=== PATIENT | female | born 1930 | race Caucasian/White ===

== ENCOUNTER 2016-11-20 10:36 | Emergency (ER) | payer MEDICARE, BC ==
--- NOTE | 2016-11-20 11:09 | EDM.PDOC ---
ED HPI GENERAL MEDICAL PROBLEM - General Chief Complaint: Bite:Animal, Insect Stated Complaint: WASP STING Time Seen by Provider: 11/20/16 10:45 Source of Information: Reports: Patient, Family, RN, RN Notes Reviewed History Limitations: Reports: No Limitations - History of Present Illness INITIAL COMMENTS - FREE TEXT/NARRATIVE: Patient presents to the emergency room at [facility] after she was stung by a wasp. The patient states while she was out burning and watering rosebushes she was stung by a wasp. The patient is concerned because she does have a history of reactions to bee stings. The patient currently denies any respiratory problems. The patient's only complaint is very mild swelling in the palm of the left hand where she was stung. No focal neurological deficit. Patient denies any chest pain. Onset: Today Onset Date: 11/20/16 Onset Time: 10:00 - Related Data Allergies Allergy/AdvReac Type Severity Reaction Status Date / Time bee venom protein (honey bee) Allergy Airway Verified 11/20/16 10:55 Tightness Home Meds: Home Meds Levothyroxine 75 mcg PO ASDIRECTED 11/20/16 [History] Simvastatin [Zocor] 5 mg PO DAILY 11/20/16 [History] methylPREDNISolone [Medrol] 4 mg PO ASDIRECTED #1 dosepk 11/20/16 [Rx] ED ROS GENERAL - Review of Systems Review Of Systems: See Below Constitutional: Denies: Fever, Chills, Weakness Respiratory: Denies: Shortness of Breath, Wheezing, Cough Cardiovascular: Denies: Chest Pain, Dyspnea on Exertion, Palpitations Skin: Reports: Wound (swelling around the PIP joint 5th digit left hand) Neurological: Reports: No Symptoms. Denies: Dizziness, Headache, Numbness, Paresthesia, Tingling ED EXAM, ANIMAL BITE - Physical Exam Exam: See Below Exam Limited By: No Limitations General Appearance: Alert, No Apparent Distress Throat/Mouth: Normal Inspection, Normal Oropharynx, No Airway Compromise Neck: Supple Respiratory/Chest: No Respiratory Distress, Lungs Clear, Normal Breath Sounds Cardiovascular: Normal Peripheral Pulses, Regular Rate, Rhythm Peripheral Pulses: 2+: Radial (L), Radial (R) Neurological: Alert, Oriented Skin Exam: Normal Color, Warm/Dry, Other (Mild erythema and swelling around the PIP joint of the fifth digit left hand; no stinger located; area is slightly tender to palpation; no evidence of ensuing infection) Course - Vital Signs Last Recorded V/S: Last Vital Signs Temp 36.3 C 11/20/16 10:45 Pulse 76 11/20/16 10:45 Resp 20 11/20/16 10:45 BP 138/72 11/20/16 10:45 Pulse Ox 96 11/20/16 10:45 Departure - Departure Time of Disposition: 11:08 Disposition: Home, Self-Care 01 Condition: Good Clinical Impression: Wasp sting Qualifiers: Encounter type: initial encounter Injury intent: accidental or unintentional Qualified Code(s): T63.461A - Toxic effect of venom of wasps, accidental ( unintentional), initial encounter - Discharge Information Prescriptions: methylPREDNISolone [Medrol] 4 mg PO ASDIRECTED #1 dosepk Instructions: Bee, Wasp, or Hornet Sting Additional Instructions: 1. Stay well hydrated and rest 2. Take steroid medication for the full coarse, even if symptoms are better 3. Call with any questions or concerns - Problem List Review Problem List Initiated/Reviewed/Updated: Yes - Assessment/Plan Plan: Given the patient's history of bee sting reactions in the past, I will prophylactically start patient on a Medrol dose pack. Discussed the patient to watch the area and if it progressively gets worse she is to return or see her primary care provider. Discussed the patient and she feels that she's having any breathing difficulty or chest pain she is also to return. Patient verbalized understanding.
== END 2016-11-20 11:21 | disposition home or self-care (01) ==
LOC: VM.ED 10:36
DX: T63.461A Toxic effect of venom of wasps, accidental (unintentional), initial encounter (principal); M79.89 Other specified soft tissue disorders; Z91.030 Bee allergy status
CPT/HCPCS: 99281; 99282-GF

== ENCOUNTER 2018-09-07 10:03 | Observation (INO) | payer MEDICARE, BC ==
[2018-09-07] MEDS ORDERED: Sodium Chloride 0.9% 10 ML Syringe FLUSH PRN (10:19)
[2018-09-07] MEDS: Sodium Chloride 0.9% 1,000 ML IV ONE ×2 (10:34→13:43)
[2018-09-07] MEDS ORDERED: cefTRIAXone 2 GM Vial IVPUSH ONE (10:48)
--- NOTE | 2018-09-07 11:14 | EDM.PDOC ---
ED HPI GENERAL MEDICAL PROBLEM - General Chief Complaint: General Stated Complaint: DIZZY AND NOT FEELING WELL Time Seen by Provider: 09/07/18 10:05 Source of Information: Reports: Patient, Family History Limitations: Reports: No Limitations - History of Present Illness INITIAL COMMENTS - FREE TEXT/NARRATIVE: Pt. presents to ER with complaints feeling lightheaded. Pt. was diagnosed with CAP yesterday at [facility]. She was started on Azithromycin. Pt. states that she has been experiencing a cough and chest congestion for over a week before she went to the clinic. Denies any fever or chills. She compaints of feeling more lighteded this AM and presents to ER. Denies any palpitations. No chest pain, but complains of chest pressure. No jaw, arm, neck or back pain. No nausea, vomiting, or diarrhea. No melena or hematochezia. No hematemesis. She states that her appetite is normal. She has not been around any sick contacts. family states that the patient is not confused. Onset: Today Onset Date: 09/07/18 Location: Reports: Generalized - Related Data Allergies Allergy/AdvReac Type Severity Reaction Status Date / Time bee venom protein (honey bee) Allergy Airway Verified 09/07/18 10:13 Tightness Home Meds: Home Meds Levothyroxine 75 mcg PO ASDIRECTED 11/20/16 [History] Simvastatin [Zocor] 5 mg PO DAILY 11/20/16 [History] methylPREDNISolone [Medrol] 4 mg PO ASDIRECTED #1 dosepk 11/20/16 [Rx] Past Medical History Cardiovascular History: Reports: High Cholesterol Endocrine/Metabolic History: Reports: Hypothyroidism Social & Family History - Tobacco Use Smoking Status *Q: Unknown Ever Smoked ED ROS GENERAL - Review of Systems Review Of Systems: See Below Constitutional: Reports: Malaise, Weakness, Fatigue. Denies: Fever, Chills HEENT: Reports: No Symptoms Respiratory: Reports: No Symptoms Cardiovascular: Reports: No Symptoms, Lightheadedness, Other (chest pressure) Endocrine: Reports: No Symptoms GI/Abdominal: Reports: No Symptoms : Reports: No Symptoms Musculoskeletal: Reports: No Symptoms Skin: Reports: No Symptoms Neurological: Reports: No Symptoms Psychiatric: Reports: No Symptoms Hematologic/Lymphatic: Reports: No Symptoms Immunologic: Reports: No Symptoms ED EXAM, GENERAL - Physical Exam Exam: See Below Exam Limited By: No Limitations General Appearance: Alert, WD/WN, No Apparent Distress Nose: Normal Inspection, Normal Mucosa, No Blood Throat/Mouth: Normal Inspection, Normal Lips, Normal Teeth, Normal Gums, Normal Oropharynx, Normal Voice, No Airway Compromise Head: Atraumatic, Normocephalic Neck: Normal Inspection, Supple, Non-Tender, Full Range of Motion Respiratory/Chest: Decreased Breath Sounds, Crackles Cardiovascular: Normal Peripheral Pulses, Regular Rate, Rhythm, No Edema, No Gallop, No JVD, No Murmur, No Rub Peripheral Pulses: 3+: Brachial (R) GI/Abdominal: Normal Bowel Sounds, Soft, Non-Tender, No Organomegaly, No Distention, No Mass (Female) Exam: Deferred Rectal (Female) Exam: Deferred Back Exam: Normal Inspection, Full Range of Motion Extremities: Normal Inspection, Normal Range of Motion Neurological: Alert, Oriented, CN II-XII Intact, Normal Cognition, Normal Gait, Normal Reflexes, No Motor/Sensory Deficits Psychiatric: Normal Affect, Normal Mood Skin Exam: Warm, Dry, Intact, Normal Color, No Rash Lymphatic: No Adenopathy Course - Vital Signs Last Recorded V/S: Last Vital Signs Temp 36.5 C 09/07/18 10:03 Pulse 76 09/07/18 10:39 Resp 18 09/07/18 10:39 BP 138/71 09/07/18 10:39 Pulse Ox 98 09/07/18 10:39 - Orders/Labs/Meds Orders: Active Orders 24 hr Category Date Time Status EKG Documentation Completion [RC] STAT Care 09/07/18 10:19 Active CBC WITH AUTO DIFF [HEME] Stat Lab 09/07/18 10:40 Results COMPREHENSIVE METABOLIC PN,CMP [CHEM] Stat Lab 09/07/18 10:40 Received CRP [C-REACTIVE PROTEIN] [CHEM] Stat Lab 09/07/18 10:40 Received CULTURE BLOOD [BC] Stat Lab 09/07/18 10:40 Received CULTURE BLOOD [BC] Stat Lab 09/07/18 10:43 Received LACTIC ACID [CHEM] Stat Lab 09/07/18 10:40 Received MAGNESIUM [CHEM] Stat Lab 09/07/18 10:40 Received MANUAL DIFFERENTIAL QA/NC [HEME] Stat Lab 09/07/18 10:40 Results PHOSPHORUS [CHEM] Stat Lab 09/07/18 10:40 Received PRO B-TYPE NATRIUR PEPT,BNPPRO [CHEM] Stat Lab 09/07/18 10:40 Received TROPONIN I [CHEM] Stat Lab 09/07/18 10:40 Received Sodium Chloride 0.9% [Normal Saline] 1,000 ml Med 09/07/18 10:24 Active IV ASDIRECTED Sodium Chloride 0.9% [Saline Flush] Med 09/07/18 10:19 Active 10 ml FLUSH ASDIRECTED PRN Blood Culture x2 Reflex Set [OM.PC] Stat Oth 09/07/18 10:20 Ordered Peripheral IV Insertion Adult [OM.PC] Routine Oth 09/07/18 10:20 Ordered Medication Orders Sodium Chloride (Normal Saline) 1,000 mls @ 250 mls/hr IV ASDIRECTED ONE Stop: 09/07/18 14:23 Last Admin: 09/07/18 10:34 Dose: 250 mls/hr Sodium Chloride (Saline Flush) 10 ml FLUSH ASDIRECTED PRN PRN Reason: Keep Vein Open Labs: Laboratory Tests 09/07/18 09/07/18 Range/Units 10:40 10:40 WBC 7.0 (4.0-10.0) x10^3/uL RBC 3.74 L (4.00-5.50) x10^6/uL Hgb 11.0 L (12.0-16.0) g/dL Hct 34.3 (33.0-47.0) % MCV 91.7 (78.0-93.0) fL MCH 29.4 (26.0-32.0) pg MCHC 32.1 (32.0-36.0) g/dL RDW Coeff of Manny 13.7 (10.0-15.0) % Plt Count 495 H (130-400) x10^3/uL Add Manual Diff Yes PT 10.8 (10.0-12.8) SEC INR 1.0 L (2.0-3.5) Meds: Medications Generic Name Dose Route Start Last Admin Trade Name Freq PRN Reason Stop Dose Admin Sodium Chloride 1,000 mls @ 250 mls/hr 09/07/18 10:24 09/07/18 10:34 Normal Saline IV 09/07/18 14:23 250 mls/hr ASDIRECTED ONE Administration Sodium Chloride 10 ml 09/07/18 10:19 Saline Flush FLUSH ASDIRECTED PRN Keep Vein Open Discontinued Medications Generic Name Dose Route Start Last Admin Trade Name Rick PRN Reason Stop Dose Admin Ceftriaxone Sodium 2 gm 09/07/18 10:48 09/07/18 10:56 Rocephin IVPUSH 09/07/18 10:49 2 gm STAT ONE Administration Departure - Departure Time of Disposition: 11:54 Disposition: DC/Tfer to [facility] 02 Clinical Impression: Community acquired pneumonia - Discharge Information - Problem List Review Problem List Initiated/Reviewed/Updated: Yes - My Orders Last 24 Hours: My Active Orders 09/07/18 10:19 EKG Documentation Completion [RC] STAT Sodium Chloride 0.9% [Saline Flush] 10 ml FLUSH ASDIRECTED PRN 09/07/18 10:20 Blood Culture x2 Reflex Set [OM.PC] Stat Peripheral IV Insertion Adult [OM.PC] Routine 09/07/18 10:24 Sodium Chloride 0.9% [Normal Saline] 1,000 ml IV ASDIRECTED 09/07/18 10:40 CBC WITH AUTO DIFF [HEME] Stat COMPREHENSIVE METABOLIC PN,CMP [CHEM] Stat CRP [C-REACTIVE PROTEIN] [CHEM] Stat CULTURE BLOOD [BC] Stat LACTIC ACID [CHEM] Stat MAGNESIUM [CHEM] Stat MANUAL DIFFERENTIAL QA/NC [HEME] Stat PHOSPHORUS [CHEM] Stat PRO B-TYPE NATRIUR PEPT,BNPPRO [CHEM] Stat TROPONIN I [CHEM] Stat 09/07/18 10:43 CULTURE BLOOD [BC] Stat - Assessment/Plan Last 24 Hours: My Active Orders 09/07/18 10:19 EKG Documentation Completion [RC] STAT Sodium Chloride 0.9% [Saline Flush] 10 ml FLUSH ASDIRECTED PRN 09/07/18 10:20 Blood Culture x2 Reflex Set [OM.PC] Stat Peripheral IV Insertion Adult [OM.PC] Routine 09/07/18 10:24 Sodium Chloride 0.9% [Normal Saline] 1,000 ml IV ASDIRECTED 09/07/18 10:40 CBC WITH AUTO DIFF [HEME] Stat COMPREHENSIVE METABOLIC PN,CMP [CHEM] Stat CRP [C-REACTIVE PROTEIN] [CHEM] Stat CULTURE BLOOD [BC] Stat LACTIC ACID [CHEM] Stat MAGNESIUM [CHEM] Stat MANUAL DIFFERENTIAL QA/NC [HEME] Stat PHOSPHORUS [CHEM] Stat PRO B-TYPE NATRIUR PEPT,BNPPRO [CHEM] Stat TROPONIN I [CHEM] Stat 09/07/18 10:43 CULTURE BLOOD [BC] Stat Plan: Pt. was given a 500ml bolus of normal saline. She was given 2 gm of rocephin IV in ER. Pt. did have an elevated lactic acid of 2.3. Pt. will be admitted acutely to med surg. I spoke with Dr. Cornelia Gomez who will admit the patient acutely. She is a code 2, no CPR, but would consent to intubation and ventilation if it was for a short period of time.
[2018-09-07 11:31] LABS: CHLORIDE,CL 98 mmol/L (98-107); SODIUM,NA 136 mmol/L (136-145)
[2018-09-07 11:32] LABS: ANION GAP 15.9 mmol/L (10-20)
--- NOTE | 2018-09-07 12:39 | CR ---
[id number] RAD/RAD Chest PA And Lateral EXAM: FRONTAL AND LATERAL CHEST INDICATION: Cough, lightheadedness and pinned acquired pneumonia. COMPARISON: None. DISCUSSION: Small bilateral pleural effusions with associated basilar atelectasis and mild infiltrates. Small to moderate hiatus hernia. Hyperaeration compatible with chronic obstructive pulmonary disease. Normal heart size. IMPRESSION: 1. Small bilateral pleural effusions with mild associated basilar atelectasis and possible early infiltrates. Jorge Sanchez MD 09/07/18 [id number] Thank you for allowing us to participate in the care of your patient.
[2018-09-07] MEDS ORDERED: ALPRAZolam 0.25 MG Tab PO PRN (13:00)
[2018-09-07] MEDS: AZITHROMYCIN 250 MG PO SCH (13:40)
--- NOTE | 2018-09-07 15:17 | HP ---
CHIEF COMPLAINT: Cough, also dizzy and not feeling well. HISTORY OF PRESENT ILLNESS: This is an 87-year-old female who came into the clinic yesterday with a cough for over 1 month and was diagnosed with pneumonia. She was started on Zithromax; however, today she continued to have the cough and just felt unwell, maybe a little bit lightheaded, came into the ER, did get some fluid and felt better, but her lactic acid was up to 2.3, so decision was made to admit her. She states her cough was productive of yellow sputum. She thought it was maybe allergies, but then yesterday she had more of a sore throat, so came in. She has not had any fever or chills. No history of pneumonia or lung disease. She is a nonsmoker. She is not short of breath. She has been eating okay. No stomach problems. No diarrhea. The patient states she has lost weight over the last few weeks. Her clinic chart actually does show a 7-pound weight loss in 3 weeks time. X-ray in the clinic yesterday did show bilateral infiltrates. No lab work was done. She has no history of heart failure and has been quite healthy. She reports that sometimes she does have some memory difficulty. Her daughter is in the room and they feel things are going okay. She does not appear to be confused on exam. ALLERGIES: Include bees and statin medications. MEDICATIONS: List is reviewed. She tells me she takes Zocor maybe 1 time a week, 5 mg; Zithromax, got 500 mg yesterday, then 250 daily, has not taken yet today; Xanax 0.25 one-half to 1 tablet twice daily as needed for anxiety; multivitamin; levothyroxine 50 mcg daily; aspirin 81 mg daily; Zantac 150 twice daily; Mylanta, calcium, and vitamin D with breakfast. PAST MEDICAL HISTORY: Includes anxiety; essential hypertension; previous colon polyps; chronic diastolic heart failure, EF 60% in 2018; osteopenia; fibromyalgia; GERD; history of H. pylori gastritis; hypothyroidism; memory difficulties, but mini-mental 29/30 in 2018; mild depression; hyperlipidemia; varicose veins; history of polio in childhood. PAST SURGICAL HISTORY: Includes total abdominal hysterectomy, heel cord lengthening, venous surgery with ELVeS, colonoscopy, cholecystectomy, cataracts, and appendectomy. FAMILY HISTORY: Both parents are . Mother had colon cancer. Father had heart disease. SOCIAL HISTORY: The patient is a never smoker. She has 3 daughters. She is tired from farming. She is . REVIEW OF SYSTEMS: General: She is losing weight, but no fever, no chills, little bit fatigued. HEENT: Some sore throat, but no trouble swallowing. She does not cough or choke on food. Cardiac: No chest pain. No palpitations. Respiratory: As stated in the HPI. Abdomen: No nausea, vomiting, diarrhea, or constipation. Musculoskeletal: She has no new joint aches or pains. Otherwise, all systems reviewed and found to be negative unless otherwise stated. PHYSICAL EXAMINATION: Vital Signs: I saw the patient, her weight was 70.3 kg, temperature 97.6, pulse 77, blood pressure 127/70, respiratory rate 16, O2 of 99% on room air. General: She is in no acute distress. Heart: Regular rate and rhythm. S1, S2 without murmur. Lungs: Lung sounds are clear to auscultation bilaterally in the upper bases, but decreased in both lower bases, and she does have crackles noted in both bases, more so on the left lower lobe. Abdomen: Positive bowel sounds. Soft, nontender. Extremities: Warm and dry. No edema. Mental Status: She is alert. She is orientated x3. LABORATORY DATA: Her chest x-ray done in ER does continue to show her to have bilateral infiltrates with small pleural effusion. Lab work does show normal white count 7, hemoglobin 11, platelets 495. INR 1. TSH recently normal through the clinic. Sodium 136, potassium 3.9, chloride 98, bicarb 26, BUN 11, creatinine 1.1, glucose 179, lactic 2.3, calcium 9, magnesium 2.2, bilirubin 0.4, AST 58, ALT 93, alkaline phosphatase 109. Troponin negative. CRP 4.1. ProBNP 381. Albumin 2.7. UA ordered and pending. ASSESSMENT AND PLAN: 1. Community-acquired bilateral pneumonia. The patient does not appear to be overly sick, however, feels poorly and failed antibiotics at home. We will admit her observation. She has already received 2 g of IV Rocephin. I will continue the oral Zithromax to complete the course 250 daily. We will repeat all lab work in the morning. We will send sputum for culture. Blood cultures have already been sent. We will decide on further antibiotic dosing prior to discharge, which I anticipate will be tomorrow. She is not requiring any oxygen. 2. Mild renal insufficiency. Creatinine up to 1.1. This is near her recent baseline in the clinic. We will make sure she gets the full liter of fluids and repeat tomorrow. I will also send a UA. 3. Essential hypertension. Blood pressure now under excellent control. We will continue her on no medications for blood pressure, which she is not on any currently. 4. Anxiety. We will continue her p.r.n. Xanax. 5. Cough, could be due to pneumonia. Anticipate that if symptoms do not resolve after treatment in a couple of weeks, she may need further testing for asthma. 6. Hypothyroidism. We will continue her home levothyroxine. 7. Questionable mild memory difficulty. She seems to be at baseline. I do not even feel any therapies are indicated for her. PLAN: The patient is admitted for observation. We will repeat the lactic acid. We will repeat lab work in the morning due to some mild anemia. We will put her on incentive spirometry. We will continue oral Zithromax and consider another dose of IV Rocephin if needed. For DVT prophylaxis, I will place her on Lovenox. She elects to be no CPR, but would want intubation. Dr. Patino to assume care tomorrow. MKA: 09/07/2018 14:19:50 MODL: 09/07/2018 15:06:49 /[id number]
[2018-09-07] MEDS: Famotidine 20 MG Tab PO SCH (19:31)
[2018-09-07] MEDS: Aluminum Hydroxide/Magnesium Hydroxide/Simethicone Susp 30 ML Cup PO SCH (20:06)
[2018-09-07] MEDS: Enoxaparin 30 MG/0.3 ML Syringe SUBCUT SCH (20:06)
[2018-09-08] MEDS: Levothyroxine 50 MCG Tab PO SCH (06:26)
[2018-09-08 07:40] LABS: ANION GAP 13.5 mmol/L (10-20)
[2018-09-08] MEDS: Famotidine 20 MG Tab PO SCH ×2 (07:41→19:43)
[2018-09-08] MEDS: AZITHROMYCIN 250 MG PO SCH (07:41)
[2018-09-08] MEDS: Aluminum Hydroxide/Magnesium Hydroxide/Simethicone Susp 30 ML Cup PO SCH ×2 (07:42→19:36)
[2018-09-08] MEDS: Aspirin 81 MG Tab.Chew PO SCH ×2 (07:42→08:55)
[2018-09-08] MEDS ORDERED: Aluminum Hydroxide/Magnesium Hydroxide/Simethicone Susp 30 ML Cup PO SCH (08:00)
[2018-09-08] MEDS ORDERED: Furosemide 20 MG Tab PO ONE (08:38)
[2018-09-08] MEDS: cefTRIAXone 1 GM Vial IVPUSH SCH (08:55)
--- NOTE | 2018-09-08 10:33 | PN ---
Progress Note for ROBERT SIFUENTES Date: 09/08/2018 Room #: VM.211 SUBJECTIVE: The patient is still coughing some. She is still feeling weak. She can walk around her room, but otherwise beyond that. Yesterday, when she was admitted, she commented that she was having quite a bit of weakness, panicky, shortness of breath type feeling. She presented to the emergency room. She had been seen in the clinic last week and noted to have a bilateral pneumonia and was placed on Zithromax. No lab work was done. When she was seen in the emergency room yesterday, her lactic acid was elevated. OBJECTIVE: VITAL SIGNS: Her temperature is 36.7, pulse 68, blood pressure is 114/53, respiratory rate is 18, saturation 95%. LUNGS: Reveals bilateral inspiratory crackles. HEART: Regular rate and rhythm. ABDOMEN: Soft. NEUROLOGIC: She is somewhat weak with changing positions. LABORATORY DATA: Her lab work today is showing her white blood cell count is normal at 6.4, hemoglobin is 10.7, platelets are 459. Sodium is 142, potassium 4.5, creatinine has improved to 0.9. GFR is 59, which has improved. Glucose is 89. Lactic acid on admission was 2.3, had been checked a few hours later was down to 0.7. Her LFTs have improved with AST 43, ALT 68. Urinalysis was normal. Sputum culture was obtained, which was rejected initially, so still waiting for further one. IMPRESSION: 1. Bilateral pneumonia. 2. Bilateral pleural effusions. 3. Elevated LFTs. 4. Weakness. 5. Hypertension. PLAN: We will continue to keep the patient hospitalized. We will continue IV Rocephin. We will give her some physical therapy for strengthening. We will give her a one time dose of Lasix to help with pleural effusion. We will repeat chest x-ray tomorrow. We do anticipate the patient should hopefully be able to go home tomorrow. Sputum sample will be resubmitted as well. GM09/08/2018 08:43:58 MODL: 09/08/2018 09:58:50 /[id number]
[2018-09-08] MEDS: Enoxaparin 30 MG/0.3 ML Syringe SUBCUT SCH (19:43)
[2018-09-09] MEDS: Levothyroxine 50 MCG Tab PO SCH (06:13)
[2018-09-09 07:00] LABS: ANION GAP 14.3 mmol/L (10-20)
[2018-09-09] MEDS: AZITHROMYCIN 250 MG PO SCH (07:58)
[2018-09-09] MEDS: cefTRIAXone 1 GM Vial IVPUSH SCH (07:58)
[2018-09-09] MEDS: Famotidine 20 MG Tab PO SCH (07:58)
[2018-09-09] MEDS: Aspirin 81 MG Tab.Chew PO SCH (07:59)
[2018-09-09] MEDS: Aluminum Hydroxide/Magnesium Hydroxide/Simethicone Susp 30 ML Cup PO SCH (08:01)
--- NOTE | 2018-09-09 08:33 | CR ---
[id number] RAD/RAD Chest PA And Lateral EXAM: FRONTAL AND LATERAL CHEST INDICATION: Pneumonia follow-up. COMPARISON: September 07, 2018. DISCUSSION: Small bilateral pleural effusions and basilar atelectasis and infiltrates have not appreciably changed. Underlying hyperinflation is compatible chronic obstructive pulmonary disease. Small to moderate hiatus hernia. Normal heart size. IMPRESSION: 1. Stable small bilateral pleural effusions with associated basilar atelectasis and possible mild infiltrates. Jorge Sanchez MD 09/09/18 0830 Thank you for allowing us to participate in the care of your patient.
--- NOTE | 2018-09-09 09:15 | PN ---
Progress Note for ROBERT SIFUENTES Date: 09/09/2018 Room #: VM.211 SUBJECTIVE: The patient is feeling better. She is not coughing as much. She did have some voiding after being given her diuretic pill. Her strength is returning. OBJECTIVE: Vital Signs: Objectively, her output yesterday was greater than intake due to the diuretic pill. Her weight is 70.6 kg, which is essentially the same as the day prior. Her temperature is 36.6, pulse of 67, blood pressure is 141/65, respiratory rate 16, saturations are 96. General: She is alert. Heart: Regular rate and rhythm. Lungs: Have rare crackles on left base. Abdomen: Soft. Extremities: Lower extremities, no edema. LABORATORY DATA: Sputum culture was repeated. It is showing greater than 100 white blood cells with less than 25 epis. No organisms seen. Her white blood cell count is 6.6, hemoglobin is up to 11.5, platelets are 474 with 48 segs and 43 lymphocytes. Sodium is 142, potassium 4.3, creatinine 1.0, GFR 52. Her LFTs have stayed with AST 44 and ALT 70. CRP has improved to 2.4. Chest x-ray was obtained, which does show improvement of pneumonia bilaterally with less fluid. IMPRESSION: 1. Bilateral pneumonia. 2. Bilateral pleural effusions. 3. Elevated LFTs. 4. Hypertension. PLAN: The patient will be allowed to be discharged home today. She did receive her IV Rocephin dose today, so we will place her on Ceftin, which she will start tomorrow. I will also repeat a course of Zithromax for her as her pneumonia is still present. The patient does have an appointment to see me in about 8 days, which she will keep. GM09/09/2018 08:30:11 MODL: 09/09/2018 09:08:25 /[id number]
--- NOTE | 2018-09-10 04:13 | DISCH ---
PRIMARY DIAGNOSES: 1. Bilateral pneumonia. 2. Bilateral pleural effusions. 3. Weakness secondary to pneumonia. 4. Hypertension. 5. Hypothyroidism. 6. Hypercholesterolemia. SUMMARY OF ADMIT HISTORY AND PHYSICAL: The patient is an 87-year-old female who presented to the emergency room feeling lightheaded. She had been diagnosed with community-acquired pneumonia at a clinic a few days ago. She had been started on azithromycin, which she had been experiencing a cough and congestion over the week prior. No fever or chills. She was feeling more lightheaded. No chest pressure. No chest pain. The patient was not noted to be confused. PHYSICAL EXAMINATION: Her blood pressure is 138/71, respiratory rate is 18, pulse 76, temperature 36.5, and sats 98. DIAGNOSTIC DATA: Her EKG looked normal. Chest x-ray showed bilateral pleural effusions with pneumonia. White blood cell count 7.0, hemoglobin 11.0, and platelets 495. SUMMARY OF HOSPITAL COURSE: The patient was placed on observation. She was given Rocephin. She was given some IV hydration, which did help. She did have sputum cultures. It was noted that her lactic acid was elevated at 2.3 on admission, was checked a few hours later; it was down to 0.7. It is noted that her liver function enzymes were elevated with her AST 58, ALT 93. CRP was elevated at 4.1, albumin was 2.7. The patient received physical therapy. She received incentive spirometry. By next morning, on 09/08, she was noted to still feel a bit weak. White blood cell count had dropped down to 6.4 from 7.0 on admission. Hemoglobin was 10.7. It was felt that she would benefit by physical therapy. She was also given 1 pill of Lasix 20 mg to help with pleural effusions. Her LFTs had improved to 43 with her AST, ALT was 68. By 09/09/2018, she was feeling much better. Chest x- ray showed improvement of pneumonias with pleural effusions having resolved. Her labs showed a white blood cell count of 6.6, hemoglobin 11.5, platelets 474. Sodium is 142, potassium 4.3, creatinine 1.0. GFR 52. Her AST was 44, ALT 70, CRP had improved to 2.4, albumin was 2.6. She will be switched to oral Ceftin and continue with the Zithromax. She was felt safe to go home. The patient will follow up with me in a week's time. We will have her use incentive spirometry while she is awake. Discharge medications will be simvastatin 5 mg Thursday, Thursday, and Thursday; Zantac 150 mg 1 p.o. b.i.d.; aspirin 81 mg 1 pill daily; levothyroxine 50 mcg 1 pill daily; calcium with vitamin D 1 pill daily; alprazolam 0.25 mg, she takes half to 1 pill twice a day as needed; Zithromax 250 mg daily, will be continued for 7 more days; Ceftin 250 mg 1 p.o. b.i.d., which will start on 09/10/2018 for 7 days. Her Maalox as needed. Multivitamin PreserVision 1 capsule daily. The patient is to inquire with her eye doctor if she can receive her injection next week versus if it needs to be delayed because she is being treated for pneumonia. The patient will need to have repeat LFTs. If they still stay elevated, she might need further workup of this. She will need to have followup chest x-ray done as well as CBC and comprehensive metabolic profile. To note, a sputum culture was obtained and is not finalized yet. It was showing greater than 100 white blood cells per low-powered field with less than 25 epithelial cells, no organism was seen. At the time of discharge, the patient is [id number] status. 09/09/2018 08:43:29 MODL: 09/10/2018 04:05:27 /[id number]
[2018-09-10] MEDS ORDERED: Cefuroxime 250 MG Tab PO SCH (08:00)
== END 2018-09-09 10:40 | disposition home or self-care (01) ==
LOC: VM.ED 10:03 → INTOOBSV 11:52 → VM.MS 11:52
PROVIDERS: ADMIT Internal Medicine; ATTEND Family Medicine
DX: J18.9 Pneumonia, unspecified organism (principal); I11.0 Hypertensive heart disease with heart failure; I50.32 Chronic diastolic (congestive) heart failure; E03.9 Hypothyroidism, unspecified; E78.00 Pure hypercholesterolemia, unspecified; F41.9 Anxiety disorder, unspecified; M79.7 Fibromyalgia; K21.9 Gastro-esophageal reflux disease without esophagitis; F32.9 Major depressive disorder, single episode, unspecified; N28.9 Disorder of kidney and ureter, unspecified; R05 Cough; R79.89 Other specified abnormal findings of blood chemistry; Z88.8 Allergy status to other drugs, medicaments and biological substances; Z91.030 Bee allergy status; Z79.82 Long term (current) use of aspirin; Z79.890 Hormone replacement therapy; Z79.899 Other long term (current) drug therapy
CPT/HCPCS: 36415; 71046; 80053; 81003; 83605; 83735; 83880; 84100; 84484; 85007; 85025; 85027; 85610; 86140; 87040; 87070; 87077; 87205; 93005; 96361; 96374; 96376; 97161; 97530; 99285; A9270; G0378; J0696; J7030; 87147; 87186; 99284-GF

== ENCOUNTER 2018-09-14 17:12 | Emergency (ER) | payer MEDICARE, BC ==
[2018-09-14] MEDS ORDERED: Sodium Chloride 0.9% 10 ML Syringe FLUSH PRN (17:30)
[2018-09-14] MEDS ORDERED: Albuterol/Ipratropium 3.0-0.5 MG/3 ML Neb Soln NEB ONE (17:34)
--- NOTE | 2018-09-14 18:01 | CR ---
[id number] RAD/RAD Chest PA or AP 1V EXAM: FRONTAL AND LATERAL CHEST INDICATION: SHORT OF BREATH. COMPARISON: September 07, 2018. DISCUSSION: Small bilateral pleural effusions and basilar atelectasis and infiltrates are not significantly changed. Underlying hyperinflation is compatible chronic obstructive pulmonary disease. Small to moderate hiatal hernia. The cardiomediastinal silhouette is stable in size. IMPRESSION: 1. Stable small bilateral pleural effusions with associated basilar atelectasis and likely small infiltrates. Keon Hernandez DO 09/14/18 1800 Thank you for allowing us to participate in the care of your patient.
[2018-09-14 18:24] LABS: CHLORIDE,CL 98 mmol/L (98-107); SODIUM,NA 135 mmol/L (136-145)
--- NOTE | 2018-09-14 18:27 | EDM.PDOC ---
ED HPI GENERAL MEDICAL PROBLEM - General Chief Complaint: Respiratory Problem Stated Complaint: DIFFICULTY BREATHING Time Seen by Provider: 09/14/18 17:30 Source of Information: Reports: Patient, Family, Provider History Limitations: Reports: No Limitations - History of Present Illness INITIAL COMMENTS - FREE TEXT/NARRATIVE: Patient presents with complaints of shortness of breath that started after her nap this afternoon. She was recently discharged from [facility] after acquiring community acquired pneumonia. Continues to take Ceftin for antibiotic. She did think this was making her dizzy. No complaints of any falls, headache, neck ache, abdominal pain. Is urinating normally, no bowel problems. No urinary symptoms. No blood in urine or stools. Onset: Today, Sudden Duration: Getting Worse Location: Reports: Chest Severity: Moderate Associated Symptoms: Reports: cough w sputum, Shortness of Breath - Related Data Allergies Allergy/AdvReac Type Severity Reaction Status Date / Time bee venom protein (honey bee) Allergy Airway Verified 09/14/18 18:39 Tightness Bpkdhld-Vde-Rbj Reductase AdvReac Muscle Verified 09/14/18 18:39 Inhibitor Aches Home Meds: Home Meds Simvastatin [Zocor] 5 mg PO MOWEFR 11/20/16 [History] ALPRAZolam [Xanax] 0.5 - 1 tab PO BID PRN 09/07/18 [History] Alum Hydrox/Mag Hydrox/Simeth [Maalox Advanced] 5 ml PO DAILY 09/07/18 [History] Aspirin 81 mg PO DAILY 09/07/18 [History] Calcium Carbonate/Vitamin D3 [Calcium Carbonate/Vitamin D 600 MG-200 Unit] 1 tab PO ACBREAKFAST 09/07/18 [History] Levothyroxine [Synthroid] 50 mcg PO DAILY 09/07/18 [History] Ranitidine [Zantac] 150 mg PO BID 09/07/18 [History] Vit C/E/Zn/Coppr/Lutein/Zeaxan [Preservision Areds 2 Softgel] 2 cap PO DAILY [History] Azithromycin [Zithromax] 250 mg PO DAILY #6 tablet 09/09/18 [Rx] Cefuroxime [Ceftin] 250 mg PO BID 7 Days #14 tablet 09/09/18 [Rx] Past Medical History HEENT History: Reports: Cataract Cardiovascular History: Reports: High Cholesterol, Hypertension, Other (See Below) Other Cardiovascular History: varicose veins, diastolic dysfunction Respiratory History: Reports: Other (See Below) Other Respiratory History: dyspnea on exertion Gastrointestinal History: Reports: Colon Polyp, Gastritis, GERD, Hemorrhoids Musculoskeletal History: Reports: Other (See Below) Other Musculoskeletal History: disorder of bone Other Neuro History: fibromylagia, memory difficulties, hx of polio Psychiatric History: Reports: Anxiety, Depression Endocrine/Metabolic History: Reports: Hypothyroidism - Past Surgical History HEENT Surgical History: Reports: Cataract Surgery GI Surgical History: Reports: Appendectomy, Cholecystectomy, Colonoscopy Female Surgical History: Reports: Hysterectomy Social & Family History - Family History Family Medical History: Noncontributory - Caffeine Use Caffeine Use: Reports: Coffee ED ROS GENERAL - Review of Systems Review Of Systems: See Below Constitutional: Reports: No Symptoms HEENT: Reports: No Symptoms Respiratory: Reports: Shortness of Breath, Cough Cardiovascular: Reports: No Symptoms Endocrine: Reports: No Symptoms GI/Abdominal: Reports: No Symptoms : Reports: No Symptoms Musculoskeletal: Reports: No Symptoms Skin: Reports: No Symptoms Neurological: Reports: Dizziness Psychiatric: Reports: No Symptoms Hematologic/Lymphatic: Reports: No Symptoms Immunologic: Reports: No Symptoms ED EXAM, GENERAL - Physical Exam Exam: See Below Exam Limited By: No Limitations General Appearance: Alert, WD/WN, No Apparent Distress Eye Exam: Bilateral Eye: EOMI, Normal Inspection, PERRL Ears: Normal TMs Nose: Normal Inspection, Normal Mucosa, No Blood Throat/Mouth: Normal Inspection, Normal Lips, Normal Teeth, Normal Gums, Normal Oropharynx, Normal Voice, No Airway Compromise Head: Atraumatic, Normocephalic Neck: Normal Inspection, Supple, Non-Tender, Full Range of Motion Respiratory/Chest: No Respiratory Distress, Lungs Clear, Normal Breath Sounds, No Accessory Muscle Use, Chest Non-Tender Cardiovascular: Normal Peripheral Pulses, Regular Rate, Rhythm, No Edema, No Gallop, No JVD, No Murmur, No Rub Peripheral Pulses: 2+: Posterior Tibial (L), Posterior Tibial (R), Dorsalis Pedis (L), Dorsalis Pedis (R) GI/Abdominal: Normal Bowel Sounds, Soft, Non-Tender, No Organomegaly, No Distention, No Abnormal Bruit, No Mass Back Exam: Normal Inspection, Full Range of Motion, NT Extremities: Normal Inspection, Normal Range of Motion, Non-Tender, Normal Capillary Refill, No Pedal Edema Neurological: Alert, Oriented, CN II-XII Intact, Normal Cognition, Normal Gait, Normal Reflexes, No Motor/Sensory Deficits Psychiatric: Anxious Skin Exam: Warm, Dry, Intact, Normal Color, No Rash Lymphatic: No Adenopathy EKG INTERPRETATION EKG Date: 09/14/18 Time: 17:27 Rhythm: NSR Rate (Beats/Min): 63 Panacea: Normal P-Wave: Present QRS: Normal ST-T: Normal QT: Normal Comparison: No Change Course - Vital Signs Last Recorded V/S: Last Vital Signs Temp 35.9 C 09/14/18 18:35 Pulse 66 09/14/18 17:15 Resp 14 09/14/18 17:15 BP 162/73 H 09/14/18 17:15 Pulse Ox 98 09/14/18 17:15 - Orders/Labs/Meds Orders: Active Orders 24 hr Category Date Time Status RT Aerosol Therapy [RC] ASDIRECTED Care 09/14/18 17:34 Active Chest PE [Ang Chest] [CT] Stat Exams 09/14/18 18:19 Taken Sodium Chloride 0.9% [Normal Saline] 1,000 ml Med 09/14/18 18:30 Active IV ASDIRECTED Sodium Chloride 0.9% [Saline Flush] Med 09/14/18 17:30 Active 10 ml FLUSH ASDIRECTED PRN Saline Lock Insert [OM.PC] Routine Oth 09/14/18 17:30 Ordered Medication Orders Sodium Chloride (Normal Saline) 1,000 mls @ 999 mls/hr IV ASDIRECTED [facility] Last Admin: 09/14/18 18:30 Dose: 999 mls/hr Sodium Chloride (Saline Flush) 10 ml FLUSH ASDIRECTED PRN PRN Reason: Keep Vein Open Labs: Laboratory Tests 09/14/18 09/14/18 09/14/18 Range/Units 17:46 17:46 17:46 WBC 7.1 (4.0-10.0) x10^3/uL RBC 4.01 (4.00-5.50) x10^6/uL Hgb 12.0 (12.0-16.0) g/dL Hct 35.6 (33.0-47.0) % MCV 88.8 (78.0-93.0) fL MCH 29.9 (26.0-32.0) pg MCHC 33.7 (32.0-36.0) g/dL RDW Coeff of Manny 13.8 (10.0-15.0) % Plt Count 393 D (130-400) x10^3/uL Neut % (Auto) 56.5 (50.0-80.0) % Lymph % (Auto) 34.5 (25.0-50.0) % [place] % (Auto) 6.8 (2.0-11.0) % Eos % (Auto) 1.6 (0.0-4.0) % Baso % (Auto) 0.6 (0.2-1.2) % PT (10.0-12.8) SEC INR (2.0-3.5) D-Dimer, Quantitative 0.82 H (<=0.58) mg/LFEU Sodium 135 L (136-145) mmol/L Potassium 4.0 (3.5-5.1) mmol/L Chloride 98 (98-107) mmol/L Carbon Dioxide 25 (21-32) mmol/L Anion Gap 16.0 (10-20) mmol/L BUN 14 (7-18) mg/dL Creatinine 1.1 H (0.55-1.02) mg/dL Est Cr Clr Drug Dosing TNP Estimated GFR (MDRD) 47 Glucose 90 (74-106) mg/dL Lactic Acid (0.4-2.0) mmol/L Calcium 9.4 (8.5-10.1) mg/dL Corrected Calcium 9.96 (8.5-10.1) mg/dL Magnesium 2.0 (1.8-2.4) mg/dL Total Bilirubin 0.3 (0.2-1.0) mg/dL AST 30 (15-37) U/L ALT 43 (14-59) U/L Alkaline Phosphatase 95 (46-116) U/L Troponin I < 0.017 (<=0.056) ng/mL NT-Pro-B Natriuret Pep 176 (<=450) pg/mL Total Protein 7.3 (6.4-8.2) g/dL Albumin 3.3 L (3.4-5.0) g/dL Globulin 4.0 Albumin/Globulin Ratio 0.83 TSH, Ultra Sensitive 4.444 H (0.358-3.74) uIU/mL Urine Color (YELLOW) Urine Appearance (CLEAR) Urine pH (5.0-8.0) Ur Specific [place] Urine Protein (NEGATIVE) mg/dL Urine Glucose (UA) (NEGATIVE) mg/dL Urine Ketones (NEGATIVE) mg/dL Urine Occult Blood (NEGATIVE) Urine Nitrite (NEGATIVE) Urine Bilirubin (NEGATIVE) Urine Urobilinogen (0.2) EU/dL Ur Leukocyte Esterase (NEGATIVE) Urine RBC (NOT SEEN) /HPF Urine WBC (NOT SEEN) /HPF Ur Squamous Epith Cells (NEGATIVE) /HPF Urine Bacteria (NEGATIVE) /HPF Urine Mucus (NEGATIVE) /LPF 09/14/18 09/14/18 09/14/18 Range/Units 17:46 17:46 18:58 WBC (4.0-10.0) x10^3/uL RBC (4.00-5.50) x10^6/uL Hgb (12.0-16.0) g/dL Hct (33.0-47.0) % MCV (78.0-93.0) fL MCH (26.0-32.0) pg MCHC (32.0-36.0) g/dL RDW Coeff of Manny (10.0-15.0) % Plt Count (130-400) x10^3/uL Neut % (Auto) (50.0-80.0) % Lymph % (Auto) (25.0-50.0) % [place] % (Auto) (2.0-11.0) % Eos % (Auto) (0.0-4.0) % Baso % (Auto) (0.2-1.2) % PT 10.4 (10.0-12.8) SEC INR 0.9 L (2.0-3.5) D-Dimer, Quantitative (<=0.58) mg/LFEU Sodium (136-145) mmol/L Potassium (3.5-5.1) mmol/L Chloride (98-107) mmol/L Carbon Dioxide (21-32) mmol/L Anion Gap (10-20) mmol/L BUN (7-18) mg/dL Creatinine (0.55-1.02) mg/dL Est Cr Clr Drug Dosing Estimated GFR (MDRD) Glucose (74-106) mg/dL Lactic Acid 1.1 (0.4-2.0) mmol/L Calcium (8.5-10.1) mg/dL Corrected Calcium (8.5-10.1) mg/dL Magnesium (1.8-2.4) mg/dL Total Bilirubin (0.2-1.0) mg/dL AST (15-37) U/L ALT (14-59) U/L Alkaline Phosphatase (46-116) U/L Troponin I (<=0.056) ng/mL NT-Pro-B Natriuret Pep (<=450) pg/mL Total Protein (6.4-8.2) g/dL Albumin (3.4-5.0) g/dL Globulin Albumin/Globulin Ratio TSH, Ultra Sensitive (0.358-3.74) uIU/mL Urine Color Yellow (YELLOW) Urine Appearance Clear (CLEAR) Urine pH 7.5 (5.0-8.0) Ur Specific [place] 1.010 Urine Protein Negative (NEGATIVE) mg/dL Urine Glucose (UA) Negative (NEGATIVE) mg/dL Urine Ketones Negative (NEGATIVE) mg/dL Urine Occult Blood Negative (NEGATIVE) Urine Nitrite Negative (NEGATIVE) Urine Bilirubin Negative (NEGATIVE) Urine Urobilinogen 0.2 (0.2) EU/dL Ur Leukocyte Esterase Negative (NEGATIVE) Urine RBC Not seen (NOT SEEN) /HPF Urine WBC 0-5 (NOT SEEN) /HPF Ur Squamous Epith Cells Rare (NEGATIVE) /HPF Urine Bacteria Not seen (NEGATIVE) /HPF Urine Mucus Not seen (NEGATIVE) /LPF Meds: Medications Generic Name Dose Route Start Last Admin Trade Name Freq PRN Reason Stop Dose Admin Sodium Chloride 1,000 mls @ 999 mls/hr 09/14/18 18:30 09/14/18 18:30 Normal Saline IV 999 mls/hr ASDIRECTED ERICA Administration Sodium Chloride 10 ml 09/14/18 17:30 Saline Flush FLUSH ASDIRECTED PRN Keep Vein Open Discontinued Medications Generic Name Dose Route Start Last Admin Trade Name Freq PRN Reason Stop Dose Admin Albuterol/Ipratropium 3 ml 09/14/18 17:34 09/14/18 17:55 Duoneb 3.0-0.5 Mg/3 Ml NEB 09/14/18 17:35 3 ml ONETIME ONE Administration Iopamidol 100 ml 09/14/18 19:01 09/14/18 19:27 Isovue-300 (61%) IVPUSH 09/14/18 19:02 100 ml ONETIME ONE Administration - Radiology Interpretation Free Text/Narrative:: Chest x-ray indicated stable pleural effusions. CTA chest negative for PE Departure - Departure Time of Disposition: 20:44 Disposition: Home, Self-Care 01 Condition: Good Clinical Impression: COPD exacerbation, Community acquired pneumonia - Discharge Information *PRESCRIPTION DRUG MONITORING PROGRAM REVIEWED*: Not Applicable *COPY OF PRESCRIPTION DRUG MONITORING REPORT IN PATIENT JAGDEEP: Not Applicable Instructions: Chronic Obstructive Pulmonary Disease Exacerbation, Nkdi-uc-Cmsd , Amoxicillin; Clavulanic Acid tablets, Probiotics Forms: ED Department Discharge Additional Instructions: Plan 1. Stop current antibiotic and start Augmentin 1 tablet twice a day for 7 days 2. Eat yogurt or take probiotics to prevent bacterial infection of the gut from taking antibiotics 3. Take prednisone once a day for 7 days 4. Drink plenty of water 5. Follow up with Dr. Patino in 7-10 days or sooner if additional symptoms arise. 6. Please call the hospital if you have any additional questions or concerns ED Communication - ED Communication Date/Time Date: 09/14/18 Time Called: 20:30 - Discussed Case With (1) Discussed Case With (1): Other Provider (Instructions received from Dr. Patino to start augmentin and prednisone for 7 days. Will do so.) - Problem List & Annotations (1) Community acquired pneumonia SNOMED Code(s): 058593881 Code(s): J18.9 - PNEUMONIA, UNSPECIFIED ORGANISM Status: Acute Priority: Medium Current Visit: Yes Qualifiers: Laterality: unspecified laterality Qualified Code(s): J18.9 - Pneumonia, unspecified organism (2) COPD exacerbation SNOMED Code(s): 403465598 Code(s): J44.1 - CHRONIC OBSTRUCTIVE PULMONARY DISEASE W (ACUTE) EXACERBATION Status: Acute Priority: Medium Current Visit: Yes - Problem List Review Problem List Initiated/Reviewed/Updated: Yes - My Orders Last 24 Hours: My Active Orders 09/14/18 17:30 Sodium Chloride 0.9% [Saline Flush] 10 ml FLUSH ASDIRECTED PRN Saline Lock Insert [OM.PC] Routine 09/14/18 17:34 RT Aerosol Therapy [RC] ASDIRECTED 09/14/18 18:19 Chest PE [Ang Chest] [CT] Stat 09/14/18 18:30 Sodium Chloride 0.9% [Normal Saline] 1,000 ml IV ASDIRECTED - Assessment/Plan Last 24 Hours: My Active Orders 09/14/18 17:30 Sodium Chloride 0.9% [Saline Flush] 10 ml FLUSH ASDIRECTED PRN Saline Lock Insert [OM.PC] Routine 09/14/18 17:34 RT Aerosol Therapy [RC] ASDIRECTED 09/14/18 18:19 Chest PE [Ang Chest] [CT] Stat 09/14/18 18:30 Sodium Chloride 0.9% [Normal Saline] 1,000 ml IV ASDIRECTED Assessment:: COPD exacerbation CAP Plan: Plan 1. Stop current antibiotic and start Augmentin 1 tablet twice a day for 7 days 2. Eat yogurt or take probiotics to prevent bacterial infection of the gut from taking antibiotics 3. Take prednisone once a day for 7 days 4. Drink plenty of water 5. Follow up with Dr. Patino in 7-10 days or sooner if additional symptoms arise. 6. Please call the hospital if you have any additional questions or concerns
[2018-09-14] MEDS ORDERED: Sodium Chloride 0.9% 1,000 ML IV SCH (18:30)
[2018-09-14] MEDS ORDERED: Iopamidol 612 MG/ML 100 ML Bottle IVPUSH ONE (19:01)
--- NOTE | 2018-09-15 07:42 | CT ---
[id number] CT/CTA Chest EXAM: CT ANGIOGRAM CHEST INDICATION: SOB, ELEVATED D-DIMER COMPARISON: None. DISCUSSION: The pulmonary arteries are normal in appearance with no emboli identified. There are airspace opacifications within the dependent portions of the lungs bilaterally most pronounced at the lung bases. Mild probably centrilobular emphysema. No pleural effusion or pneumothorax. The heart is normal in size. Coronary artery disease. Atherosclerotic calcifications of the aorta and its branches. No mediastinal, hilar or axillary lymphadenopathy. Moderate hiatal hernia. Hypodense lesion within the left hepatic lobe likely represents a cyst. Remaining visualized upper abdominal organs are unremarkable. IMPRESSION: 1. No evidence of acute pulmonary embolism. 2. Airspace consolidation in the dependent portion lungs bilaterally most pronounced at the lung bases. This is likely infectious/inflammatory and can be seen with aspiration. Keon Hernandez DO 09/15/18 0741 Thank you for allowing us to participate in the care of your patient.
== END 2018-09-14 20:50 | disposition home or self-care (01) ==
LOC: VM.ED 17:12
DX: J44.1 Chronic obstructive pulmonary disease with (acute) exacerbation (principal); J18.9 Pneumonia, unspecified organism; E78.00 Pure hypercholesterolemia, unspecified; I10 Essential (primary) hypertension; K21.9 Gastro-esophageal reflux disease without esophagitis; F41.9 Anxiety disorder, unspecified; F32.9 Major depressive disorder, single episode, unspecified; E03.9 Hypothyroidism, unspecified; Z91.030 Bee allergy status; Z88.8 Allergy status to other drugs, medicaments and biological substances; Z79.899 Other long term (current) drug therapy; Z79.82 Long term (current) use of aspirin
CPT/HCPCS: 71045; 71275; 80053; 81001; 83605; 83735; 83880; 84443; 84484; 85025; 85379; 85610; 93005; 93010; 96360; 99284; 99285; J7030; Q9967; J7620-GY

== ENCOUNTER 2018-10-19 08:09 | Emergency (ER) | payer MEDICARE, BC ==
[2018-10-19] MEDS ORDERED: Sodium Chloride 0.9% 10 ML Syringe FLUSH PRN (09:07)
[2018-10-19] MEDS ORDERED: Nitroglycerin 0.4 MG Tab.SL SL PRN (09:07)
[2018-10-19] MEDS ORDERED: Aspirin 81 MG Tab.Chew PO ONE (09:07)
[2018-10-19 09:13] LABS: CHLORIDE,CL 103 mmol/L (98-107); SODIUM,NA 140 mmol/L (136-145)
[2018-10-19 09:14] LABS: ANION GAP 14.2 mmol/L (10-20)
--- NOTE | 2018-10-19 09:18 | EDM.PDOC ---
ED HPI GENERAL MEDICAL PROBLEM - General Chief Complaint: Respiratory Problem Stated Complaint: LABORED BREATHING Time Seen by Provider: 10/19/18 08:45 Source of Information: Reports: Patient History Limitations: Reports: No Limitations - History of Present Illness INITIAL COMMENTS - FREE TEXT/NARRATIVE: Patient states approximately 7:30 this morning after taking 2 sips of coffee she felt like she was having trouble getting her breath/shortness of breath when a dull chest pressure in the middle of her chest but no pain. She says she just seems like she cannot catch her breath this morning. She denies any chest pain or dyspnea on exertion edema PND orthopnea states she felt fine last night and going to bed. She denies any fever or chills night sweats nausea vomiting abdominal pain and has been doing well the last couple of days. She states in june she was treated for pneumonia but has had chest x-ray since and cleared she also had a CT PE preformed here which was neg She has not seen a configuration consultant but she has had a cardiac echo which she was told it was normal by her primary care provider in the last year. Duration: Hour(s): Location: Reports: Chest Quality: Reports: Pressure Severity: Moderate Improves with: Reports: None Worsens with: Reports: None Associated Symptoms: Reports: Shortness of Breath. Denies: Confusion, Chest Pain, Cough, cough w sputum, Diaphoresis, Fever/Chills, Headaches, Loss of Appetite, Malaise, Nausea/Vomiting, Syncope, Weakness Right Thoracic Pain Score (Numeric/FACES): 2 - Related Data Allergies Allergy/AdvReac Type Severity Reaction Status Date / Time bee venom protein (honey bee) Allergy Airway Verified 10/19/18 08:49 Tightness [id number] Reductase AdvReac Muscle Verified 10/19/18 08:49 Inhibitor Aches Home Meds: Home Meds Simvastatin [Zocor] 5 mg PO MOWEFR 11/20/16 [History] ALPRAZolam [Xanax] 0.5 - 1 tab PO BID PRN 09/07/18 [History] Alum Hydrox/Mag Hydrox/Simeth [Maalox Advanced] 5 ml PO DAILY 09/07/18 [History] Aspirin 81 mg PO DAILY 09/07/18 [History] Calcium Carbonate/Vitamin D3 [Calcium Carbonate/Vitamin D 600 MG-200 Unit] 1 tab PO ACBREAKFAST 09/07/18 [History] Levothyroxine [Synthroid] 50 mcg PO DAILY 09/07/18 [History] Ranitidine [Zantac] 150 mg PO BID 09/07/18 [History] Vit C/E/Zn/Coppr/Lutein/Zeaxan [Preservision Areds 2 Softgel] 2 cap PO DAILY [History] Past Medical History HEENT History: Reports: Cataract Cardiovascular History: Reports: High Cholesterol, Hypertension, Other (See Below) Other Cardiovascular History: varicose veins, diastolic dysfunction Respiratory History: Reports: Other (See Below) Other Respiratory History: dyspnea on exertion Gastrointestinal History: Reports: Colon Polyp, Gastritis, GERD, Hemorrhoids Musculoskeletal History: Reports: Other (See Below) Other Musculoskeletal History: disorder of bone Other Neuro History: fibromylagia, memory difficulties, hx of polio Psychiatric History: Reports: Anxiety, Depression Endocrine/Metabolic History: Reports: Hypothyroidism - Past Surgical History HEENT Surgical History: Reports: Cataract Surgery GI Surgical History: Reports: Appendectomy, Cholecystectomy, Colonoscopy Female Surgical History: Reports: Hysterectomy Social & Family History - Family History Family Medical History: Noncontributory - Tobacco Use Smoking Status *Q: Never Smoker - Caffeine Use Caffeine Use: Reports: Coffee ED ROS GENERAL - Review of Systems Review Of Systems: See Below Constitutional: Reports: No Symptoms. Denies: Fever, Chills, Malaise, Weakness , Fatigue, Night Sweats, Diaphoresis, Decreased Appetite HEENT: Reports: No Symptoms Respiratory: Reports: Shortness of Breath. Denies: Wheezing, Pleuritic Chest Pain, Cough, Sputum, Hemoptysis Cardiovascular: Reports: No Symptoms. Denies: Chest Pain, Blood Pressure Problem, Claudication, Dyspnea on Exertion, Edema, Lightheadedness, Orthopnea, Palpitations, PND, Syncope Endocrine: Reports: No Symptoms GI/Abdominal: Reports: No Symptoms Musculoskeletal: Reports: No Symptoms Skin: Reports: No Symptoms Neurological: Reports: No Symptoms Psychiatric: Reports: No Symptoms Hematologic/Lymphatic: Reports: No Symptoms Immunologic: Reports: No Symptoms ED EXAM, GENERAL - Physical Exam Exam: See Below Exam Limited By: No Limitations General Appearance: Alert, WD/WN, No Apparent Distress, Other (Patient is talking normal 20 word sentences no respiratory issues satting 97 99% on room air no signs respiratory distress) Ears: Normal External Exam, Hearing Grossly Normal Nose: Normal Inspection, Normal Mucosa, No Blood Throat/Mouth: Normal Inspection, Normal Lips, Normal Teeth, Normal Gums, Normal Oropharynx, Normal Voice, No Airway Compromise Neck: Normal Inspection, Supple, Non-Tender, Full Range of Motion Respiratory/Chest: No Respiratory Distress, Lungs Clear, Normal Breath Sounds, No Accessory Muscle Use, Chest Non-Tender Cardiovascular: Normal Peripheral Pulses, Regular Rate, Rhythm, No Edema, No Gallop, No JVD, No Murmur, No Rub GI/Abdominal: Normal Bowel Sounds, Soft, Non-Tender, No Organomegaly, No Distention, Pelvis Stable Back Exam: Full Range of Motion Extremities: Normal Inspection, Normal Range of Motion, Non-Tender, No Pedal Edema, Normal Capillary Refill Neurological: Alert, Oriented, CN II-XII Intact, Normal Cognition, Normal Reflexes, No Motor/Sensory Deficits Psychiatric: Normal Affect, Normal Mood Skin Exam: Warm, Dry, Intact, Normal Color, No Rash Course - Vital Signs Text/Narrative:: CBC BMP troponin within normal limits EKG is normal sinus rhythm no acute findings no ST elevation or depression and no T-wave inversion Chest x-ray mild pleural effusion on the left no acute processes Second troponin negative no EKG changes patient rechecked after Xanax states feels much better. spoke with YAMILET states patient has a history of episodes like this has been worked up numerous times. Usually turns out to be hyperventilation/anxiety states patient really does not have any cardiac risk factors. She is well and see the patient in clinic this week okay with diagnosis treatment and discharge Patient was rechecked states feels 100% better and wants to go home does not want further workup for transfer to [facility] she is okay seen her primary care provider next couple days as outpatient in clinic states she is willing come back to emergency room if anything changes or gets worse daughters okay with disposition treatment and diagnosis Last Recorded V/S: Last Vital Signs Temp 36.4 C 10/19/18 08:35 Pulse 64 10/19/18 11:15 Resp 18 10/19/18 11:15 BP 136/54 L 10/19/18 11:15 Pulse Ox 99 10/19/18 11:15 - Orders/Labs/Meds Orders: Active Orders 24 hr Category Date Time Status EKG 12 Lead [EKG Documentation Completion] [RC] URGENT Care 10/19/18 08:48 Active EKG 12 Lead [EKG Documentation Completion] [RC] URGENT Care 10/19/18 11:13 Active Oxygen Therapy [RC] ASDIRECTED Care 10/19/18 09:13 Active RT Aerosol Therapy [RC] ASDIRECTED Care 10/19/18 10:09 Active Levalbuterol HCl [Xopenex] Med 10/19/18 10:09 Active 1.25 mg NEB Q2H PRN Nitroglycerin [Nitrostat] Med 10/19/18 09:07 Active 0.4 mg SL Q5M PRN Sodium Chloride 0.9% [Saline Flush] Med 10/19/18 09:07 Active 10 ml FLUSH ASDIRECTED PRN Saline Lock Insert [OM.PC] Routine Oth 10/19/18 09:07 Ordered Medication Orders Levalbuterol HCl (Xopenex) 1.25 mg NEB Q2H PRN PRN Reason: Shortness of Breath Last Admin: 10/19/18 10:16 Dose: 1.25 mg Nitroglycerin (Nitrostat) 0.4 mg SL Q5M PRN PRN Reason: Chest Pain Stop: 10/20/18 09:07 Last Admin: 10/19/18 09:05 Dose: 0.4 mg Sodium Chloride (Saline Flush) 10 ml FLUSH ASDIRECTED PRN PRN Reason: Keep Vein Open Labs: Laboratory Tests 10/19/18 10/19/18 10/19/18 Range/Units 08:44 08:44 11:06 WBC 5.5 (4.0-10.0) x10^3/uL RBC 4.48 (4.00-5.50) x10^6/uL Hgb 13.3 (12.0-16.0) g/dL Hct 40.3 (33.0-47.0) % MCV 90.0 (78.0-93.0) fL MCH 29.7 (26.0-32.0) pg MCHC 33.0 (32.0-36.0) g/dL RDW Coeff of Manny 14.9 (10.0-15.0) % Plt Count 230 D (130-400) x10^3/uL Neut % (Auto) 41.1 L (50.0-80.0) % Lymph % (Auto) 50.7 H (25.0-50.0) % Fisher % (Auto) 6.6 (2.0-11.0) % Eos % (Auto) 1.1 (0.0-4.0) % Baso % (Auto) 0.5 (0.2-1.2) % Sodium 140 (136-145) mmol/L Potassium 4.2 (3.5-5.1) mmol/L Chloride 103 (98-107) mmol/L Carbon Dioxide 27 (21-32) mmol/L Anion Gap 14.2 (10-20) mmol/L BUN 9 (7-18) mg/dL Creatinine 1.0 (0.55-1.02) mg/dL Est Cr Clr Drug Dosing 32.17 mL/min Estimated GFR (MDRD) 52 Glucose 87 (74-106) mg/dL Calcium 9.4 (8.5-10.1) mg/dL Troponin I < 0.017 < 0.017 (<=0.056) ng/mL Meds: Medications Generic Name Dose Route Start Last Admin Trade Name Freq PRN Reason Stop Dose Admin Levalbuterol HCl 1.25 mg 10/19/18 10:09 10/19/18 10:16 Xopenex NEB 1.25 mg Q2H PRN Administration Shortness of Breath Nitroglycerin 0.4 mg 10/19/18 09:07 10/19/18 09:05 Nitrostat SL 10/20/18 09:07 0.4 mg Q5M PRN Administration Chest Pain Sodium Chloride 10 ml 10/19/18 09:07 Saline Flush FLUSH ASDIRECTED PRN Keep Vein Open Discontinued Medications Generic Name Dose Route Start Last Admin Trade Name Freq PRN Reason Stop Dose Admin Alprazolam 0.25 mg 10/19/18 10:59 10/19/18 11:07 Xanax PO 10/19/18 11:00 0.25 mg ONETIME ONE Administration Aspirin 324 mg 10/19/18 09:07 10/19/18 09:13 Aspirin PO 10/19/18 09:08 324 mg ONETIME ONE Administration Departure - Departure Time of Disposition: 12:00 Disposition: Home, Self-Care 01 Condition: Good Clinical Impression: Shortness of breath - Discharge Information *PRESCRIPTION DRUG MONITORING PROGRAM REVIEWED*: No *COPY OF PRESCRIPTION DRUG MONITORING REPORT IN PATIENT JAGDEEP: No Forms: ED Department Discharge - Problem List & Annotations (1) Shortness of breath SNOMED Code(s): 718405368 Code(s): R06.02 - SHORTNESS OF BREATH Status: Acute Current Visit: Yes - My Orders Last 24 Hours: My Active Orders 10/19/18 08:48 EKG 12 Lead [EKG Documentation Completion] [RC] URGENT 10/19/18 09:07 Nitroglycerin [Nitrostat] 0.4 mg SL Q5M PRN Sodium Chloride 0.9% [Saline Flush] 10 ml FLUSH ASDIRECTED PRN Saline Lock Insert [OM.PC] Routine 10/19/18 09:13 Oxygen Therapy [RC] ASDIRECTED 10/19/18 10:09 RT Aerosol Therapy [RC] ASDIRECTED Levalbuterol HCl [Xopenex] 1.25 mg NEB Q2H PRN 10/19/18 11:13 EKG 12 Lead [EKG Documentation Completion] [RC] URGENT - Assessment/Plan Last 24 Hours: My Active Orders 10/19/18 08:48 EKG 12 Lead [EKG Documentation Completion] [RC] URGENT 10/19/18 09:07 Nitroglycerin [Nitrostat] 0.4 mg SL Q5M PRN Sodium Chloride 0.9% [Saline Flush] 10 ml FLUSH ASDIRECTED PRN Saline Lock Insert [OM.PC] Routine 10/19/18 09:13 Oxygen Therapy [RC] ASDIRECTED 10/19/18 10:09 RT Aerosol Therapy [RC] ASDIRECTED Levalbuterol HCl [Xopenex] 1.25 mg NEB Q2H PRN 10/19/18 11:13 EKG 12 Lead [EKG Documentation Completion] [RC] URGENT
--- NOTE | 2018-10-19 09:21 | CR ---
[id number] RAD/RAD Chest PA And Lateral EXAM: RAD Chest PA And Lateral INDICATION: DYSPNEA. COMPARISON: September 14, 2018. DISCUSSION: Cardiomediastinal silhouette is stable in size and contour. No infiltrate, effusion, pneumothorax, or edema. Pulmonary hyperinflation. Left basilar subsegmental atelectasis and/or scarring. IMPRESSION: No acute cardiopulmonary abnormality. Keon Hernadnez DO 10/19/18 0921 Thank you for allowing us to participate in the care of your patient.
[2018-10-19] MEDS ORDERED: Levalbuterol HCl 1.25 MG/0.5 ML Neb NEB PRN (10:09)
[2018-10-19] MEDS ORDERED: ALPRAZolam 0.25 MG Tab PO ONE (10:59)
== END 2018-10-19 12:10 | disposition home or self-care (01) ==
LOC: VM.ED 08:09
DX: R06.02 Shortness of breath (principal); I10 Essential (primary) hypertension; E78.00 Pure hypercholesterolemia, unspecified; F41.9 Anxiety disorder, unspecified; F32.9 Major depressive disorder, single episode, unspecified; E03.9 Hypothyroidism, unspecified; K21.9 Gastro-esophageal reflux disease without esophagitis; Z91.030 Bee allergy status; Z88.8 Allergy status to other drugs, medicaments and biological substances; Z90.49 Acquired absence of other specified parts of digestive tract; Z90.710 Acquired absence of both cervix and uterus; Z79.899 Other long term (current) drug therapy
CPT/HCPCS: 36415; 71046; 80048; 84484; 85025; 93005; 94640; 94760; 99285; A9270